=== PATIENT | male | born 1955 | race Caucasian/White ===

== ENCOUNTER 2023-09-20 13:04 | Emergency (ER) | payer MEDICARE, OTHER ==
[2023-09-20 13:22] VITALS: BP 136/84; PULSE 82; RESP 18; TEMP 98.5; BMI 32.5
[2023-09-20 13:55] LABS: HEMATOCRIT 53.7 % (35.4-49); HEMOGLOBIN 17.8 G/dL (11.7-16.9); MCH 28.8 pg (25.7-33.7); MCHC 33.1 g/dl (32.0-35.9); MEAN PLT VOLUME 8.8 fl (7.5-11.1); RBC 6.17 10^6/uL (4.00-5.60); RDW 14.8 % (11.9-15.9)
[2023-09-20 13:59] LABS: PLATELET ESTIMATE ADEQUATE
[2023-09-20 14:01] LABS: ALBUMIN 4.7 g/dl (3.4-5.0); CALCIUM 9.9 mg/dl (8.5-10.1); CREATININE 1.2 mg/dl (0.6-1.3); POTASSIUM 3.8 mmol/L (3.5-5.1); TOT PROT 7.4 g/dl (6.4-8.2)
== END 2023-09-20 15:34 | disposition home or self-care (01) ==
LOC: FER 13:04
DX: R07.9 Chest pain, unspecified (principal)
CPT/HCPCS: 36415; 71045-TC-FY; 71275-TC; 74174-TC; 80053; 84484; 85027; 93005; 99285-25; Q9967